=== PATIENT | female | born 1970 | race Caucasian/White ===

== ENCOUNTER → 2019-09-18 12:19 | Outpatient (CLI) | payer BC, SELFPAY ==
--- NOTE | ~2019-09-18 | MR_ITS ---
EXAMINATION: MR cervical spine wo con EXAM DATE: 09/18/2019 12:55 INDICATION: Neck pain. TECHNIQUE: Multi-sequential, multiplanar MR images of the cervical spine were obtained without contra st. Axial T2, axial T2 MERGE sequence. Sagittal T1, T2, T2 fat saturation images also obtained. Th ere is no prior study for comparison. FINDINGS: There is mild disc disease at C4-5. The vertebral body and disc heights are otherwise well maintained. The vertebral bodies are aligned in the AP dimension. The spinal cord signal intensity a nd intrinsic morphology is normal. Cervicomedullary junction is normal in appearance. There are no chen spicious marrow signal abnormalities. Paraspinal soft tissue is unremarkable. Level by level evaluation: C2-C3: Disc does not extend beyond the endplate margin. Uncovertebral joint arthropathy: None. Facet joint arthropathy: Mild bilateral. Neural foraminal stenosis: No stenosis. Central canal stenosis: No stenosis. C3-C4: Disc does not extend beyond the endplate margin. Uncovertebral joint arthropathy: Mild right. Facet joint arthropathy: Mild to moderate right, mild left. Neural foraminal stenosis: Mild right. Central canal stenosis: No stenosis. C4-C5: There is a mild diffuse disc bulge. Uncovertebral joint arthropathy: Mild bilateral. Facet joint arthropathy: Mild bilateral. Neural foraminal stenosis: Mild right. Central canal stenosis: Mild. C5-C6: Disc does not extend beyond the endplate margin. Uncovertebral joint arthropathy: Mild to moderate right, mild left. Facet joint arthropathy: Mild bilateral. Neural foraminal stenosis: Mild to moderate right. Central canal stenosis: No stenosis. C6-C7: There is a minimal diffuse disc bulge. Uncovertebral joint arthropathy: Mild bilateral. Facet joint arthropathy: None. Neural foraminal stenosis: No stenosis. Central canal stenosis: No stenosis. C7-T1: Disc does not extend beyond the endplate margin. Uncovertebral joint arthropathy: Mild bilateral. Facet joint arthropathy: Mild left. Neural foraminal stenosis: Mild left. Central canal stenosis: No stenosis. IMPRESSION: 1. Mild cervical spondylosis as detailed above. Reviewed, dictated and finalized at location A. PER
== END ==
PROVIDERS: PCP Family Medicine; Visit Provider Psychiatry & Neurology Neurology
DX: M47.812 Spondylosis without myelopathy or radiculopathy, cervical region (principal); R20.0 Anesthesia of skin; Z79.899 Other long term (current) drug therapy
CPT/HCPCS: 72141

== ENCOUNTER 2023-04-08 09:19 | Emergency (ER) | payer BC, SELFPAY ==
--- NOTE | 2023-04-08 10:05 | PC.NURSE ---
1st call for triage, no answer
--- NOTE | 2023-04-08 10:31 | PC.NURSE ---
2nd call for triage, no answer.
== END 2023-04-08 10:31 | disposition left against medical advice (07) ==
LOC: ANHED 10:38
PROVIDERS: PCP Family Medicine
DX: Z53.21 Procedure and treatment not carried out due to patient leaving prior to being seen by health care provider (principal)
CPT/HCPCS: 99199

== ENCOUNTER 2024-08-28 09:26 | Outpatient (CLI) | payer BC, SELFPAY ==
--- NOTE | ~2024-08-28 | MR_ITS ---
EXAMINATION: MR knee LT wo con DATE: 08/28/2024 09:51 INDICATION: Left knee pain TECHNIQUE: Magnetic resonance imaging (MRI) of the left knee was performed without intravenous contra st. Sequences included coronal PD-weighted FSE, coronal PD-weighted FS FSE, sagittal T2-weighted FSE , sagittal PD-weighted FS FSE and axial PD weighted fat saturated FSE. COMPARISON: None. FINDINGS: Medial compartment: Longitudinal horizontal tear of the posterior horn of the medial meniscus which extends to the inferi or articular surface at the junction of the middle and inner thirds at the medial side of the posteri or horn transition to near the free edge with suggestion of a small secondary vertically oriented tea r plane near the free edge at the lateral side of the posterior horn. Articular cartilage is normal. Lateral compartment: Lateral meniscus is normal. Articular cartilage appears normal. There is a tiny focus of subarticular edema-like signal change along the posterior margin of the lateral tibial plateau which suggests pos sibility of occult overlying deep chondral fissuring. Patellofemoral compartment: Partial-thickness chondral ulceration and fissuring at the cephalad aspect of the medial patellar fac et. Deep chondral fissuring at the inferolateral aspect of the medial trochlea with minimal underlyin g cortical irregularity. Ligaments and tendons: Anterior and posterior cruciate ligaments are normal. The medial collateral ligament and fibular scotty ateral ligament complex are normal. The extensor mechanism is normal. Mild semimembranosus tendinopat hy without tear. The remainder of the visualized medial and lateral hamstring tendons as well as the iliotibial band are normal. Fluid: Physiologic amount of fluid in the joint space. No loose osteochondral bodies identified. Moderate-si zed Harvey's cyst measuring 5.3 x 2.1 x 0.9 cm. Osseous/other: No fracture or pathologic marrow replacing process. IMPRESSION: 1. Tear at the posterior horn of the medial meniscus. 2. 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 3. Possible small region of high-grade chondromalacia along the posterior rim of the lateral tibial p lateau. 4. Mild distal semimembranosus tendinopathy without tear. 4. Moderate-sized Harvey's cyst. Reviewed, dictated and finalized at location B. UCT SAFETY COORDINATOR IMPRESSION: 1. Tear at the posterior horn of the medial meniscus. 2. Mild patellofemoral osteoarthritis with moderate to high-grade chondromalaci a. 3. Possible small region of high-grade chondromalacia along the posterior rim o f the lateral tibial plateau. 4. Mild distal semimembranosus tendinopathy without tear. 4. Moderate-sized Harvey's cyst.
== END 2024-08-28 09:27 | disposition home or self-care (01) ==
LOC: MICIMG 09:26
PROVIDERS: PCP Family Medicine; Visit Provider Nurse Practitioner Family
DX: S83.242A Other tear of medial meniscus, current injury, left knee, initial encounter (principal); M17.12 Unilateral primary osteoarthritis, left knee; M71.22 Synovial cyst of popliteal space [Baker], left knee; M25.562 Pain in left knee; G89.29 Other chronic pain
CPT/HCPCS: 73721

== ENCOUNTER 2024-09-17 00:24 | Day surgery (SDC) | payer BC, SELFPAY ==
[2024-09-10 12:38] VITALS: BMI 24.8
--- NOTE | 2024-09-10 12:46 | PC.NURSE ---
Report to the Outpatient Waiting Room, entrance under the green pavilion located off [facility], at time _0730_ on date _[id number]_. Planned Procedure Time: _0930_.? Time changes happen often and if your time is changed the preop area will call you the afternoon before. - You and your visitor will be asked to self-screen and do not enter if you have any COVID symptoms. Please call surgeon if you need to reschedule. - A mask is optional within the hospital at this time. Patients may have clear liquids (water, carbonated beverages, clear teas, apple juice) until 3 hours prior to surgery with a maximum of 20 ounces. - No food from midnight until time of surgery and no smoking, or chewing tobacco (or any form of nicotine). No chewing gum, candy or mints. Take only the following medications with a SIP of water on the morning of surgery: ___Bupropion____ DO NOT STOP ANY OF YOUR OTHER PRESCRIPTION MEDICATIONS PRIOR TO SURGERY EXCEPT THE FOLLOWING Hold all vitamins and supplements for 3 days per anesthesiologist. Medications to discontinue per physician ___Wegovy___ Date to take last lied___[id number]____ Please no make-up, nail angolan, hairspray, perfume, deodorant, or body powder the day of surgery.? No jewelry (including any body piercings) or valuables the day of surgery, leave them at home.? Please take a shower or bath the night before, or the morning of, surgery with an antibacterial soap.? Wear comfortable, loose fitting clothing.? - Jewelry must be removed prior to entering the operating room.? Rings and piercings that are not removed may be cut off. - The hospital will not accept responsibility for valuables.? - Please leave all valuables, including medications, at home the day of surgery. If you are going home after surgery, a licensed hammer driver must drive you home.? - NO public transportation without another adult if you receive anesthesia. - We recommend that an adult stay with you for 24 hours following discharge. - We also recommend that you do not drive, make important decision, drink alcoholic beverages, or take any drugs that were not prescribed by your health care provider for at least 24 hours after your discharge time. Follow any additional instructions given to you from your surgeon. Telephone instructions given to __Faviolajaycee__and asked if any additional questions and then verbalized understanding. Patient advised to call surgeon office or pre surgery nurse liaison [phone] if any additional questions.
[2024-09-17] VITALS (9 sets, daily range): BP systolic 106–139; BP diastolic 54–79; PULSE 56–77; RESP 12–18; TEMP 36.2; O2SAT 97–100; BMI 25.0
--- OUTSIDE RECORDS SUMMARY | 2024-09-17 00:27 | XMS_ITS | Data Portability ---
Author Organization [place] [facility], Main Office Address [address] [place] [address] Assessment Encounter Date Assessment Date Assessment LastModified by Organization Details LastModified Time 05/16/2023 05/16/2023 This note is dictated and transcribed by [employer]. Medicine Worker variances may occur. Despite proofreading, typographical errors may occur. [email or web address] Not available 05/16/2023 15:00:08 Plan of Treatment Reminders Order Date Submit Date Provider Last Modified By Organization Details Last Modified Time Details Appointments None recorded. Lab lipid panel, serum 2023 [facility] (Lab), [address] [place], [address], 10:55:08 CMP, serum or plasma 2023 [facility] (Lab), [address] [place], [address], 10:55:25 CMP, serum or plasma 2023 [email or web address] [facility] (Lab), [address] [place], [address], 16:45:37 TSH + free T4, serum 2023 [email or web address] [facility] (Lab), [address] [place], [address], 16:45:37 noninvasive colorectal cancer DNA + occult blood screening, QL, stool 2022 023 [email or web address] [facility] (Cologuard Orders Only), [address], [address], [place], [address], 3 11:18:08 Referral None recorded. Procedures None recorded. Surgeries None recorded. Imaging XR, foot, 3 or more view 2022 023 [email or web address] [facility] [place], [facility], [address], [place], [address], 3 14:59:58 MAMMO, screening, digital, bilateral - *Please call pt to schedule* 2022 [email or web address] [place] [address] ([facility]), [address], [place], [address], 3 15:33:59 Medication Orders Wegovy 2.4 mg/0.75 mL subcutaneou s pen injector 2023 024 emilio [facility], [facility], [place], [address], 4 14:21:49 phentermine 37.5 mg tablet 2023 024 [id number], [address], [place], [place], [id number], 4 14:21:30 alprazolam 1 mg tablet 2023 024 SEBASTIEN [facility] #10865, [address], [place], [place], [id number], 4 09:23:31 bupropion HCl XL 150 mg 24 hr tablet, extended release [address] [facility]65, [address], [place], [place], [id number], 4 14:21:01 bupropion HCl XL 300 mg 24 hr tablet, extended release 2023 024 SEBASTIEN [facility], [address] [facility], [place], [address], 09:23:19 bupropion HCl XL 150 mg 24 hr tablet, extended release 2023 024 [email or web address]00257, [address], [place], [place], [id number], 4 14:21:01 zolpidem 5 mg tablet [address] [facility]00770, [address], [place], [place], [id number], 4 14:21:52 Patient TargetsNo targets recorded. Patient Instructions Encounter Date Encounter Id Patient Instructions Last Modified By Organization Details Last Modified Time 05/13/2024 [id number] Follow-up depression, inflammatory arthritis both clinically stable. Will check some baseline blood work consisting of CBC, CMP and lipid panel. Continue on current medications. Will follow-up in six months. Additional Orders - Directives - Recommendations 1. Mammogram 2. Bone density scan Follow Up: 6 Months Approximate Date: 11/09/2024 Portions of the record may have been created with voice recognition software. Occasional wrong-word or [id number] substitutions may have occurred due to the inherent limitations of voice recognition software. Read the chart carefully and recognize, using context, where substitutions have occurred. [email or web address] Not available 05/13/2024 14:32:18 Reason for Referral None Reported. Results Created Date Observation Date Name Description Value Unit Range Abnormal Flag Note LastModifiedBy Organization Detail LastModifiedTime 03/20/2003/20/2023 COLOG UARD cologuard result reportable NEGATI VE negati ve normal NEGAT MICHAELA TEST RESUL T. A negat michaela Colog uard resul t indic ates a low likel ihood that a color ectal cance r (CRC) or advan eddie adeno ma (maggie omato us polyp s with more advan eddie pre-m align ant featu res) is prese nt. The [facility] e that a perso n with a negat michaela Colog uard test has a color ectal cance r is less than 1 in 1500 (nega tive predi ctive value >99.9 %) or has an advan eddie adeno ma is less than 5.3% (nega tive predi ctive value 94.7% ). These data are based on a prosp ectiv e cross -sect ional study of 10,00 0 indiv idual s at [place] risk for color ectal cance r who were scree [place] with both Colog uard and colon oscop y. (Carolyne xiang South. et al, N Engl J Med 2014; 370(1 4):12 86-12 97) The zully l value (refe rence range ) for this assay is negat michaela. COLOG UARD RE-SC REENI NG RECOM MENDA TION: Perio dic color ectal cance r scree stone is an impor tant part of preve ntive healt hcare for asymp tomat ic indiv idual s at [place] ge risk for color ectal cance r. Follo wing a negat michaela Colog uard resul t, the Ameri can Cance r Socie ty and U.S. Multi -Soci ety Task Force scree stone guide lines recom mend a Colog uard re-sc reeni ng inter carlitos of 3 years . Refer ences : Ameri can Cance r Socie ty Guide line for Color ectal Cance r Scree stone: https ://nuris w.can cer.o rg/ca ncer/ colon -rect al-ca ncer/ detec tion- diagn osis- stagi ng/ac s-rec ommen datio ns.ht ml.; Renny SUE, Kwesi salazar CR, Home MillerK, Color ectal Cance r Scree stone: Recom menda tions for Physi cians and Patie nts from the U.S. Multi -Soci ety Task Force on Color ectal Cance r Scredayton jacobg , Am Angela sharma y 2017; 112:1 016-1 030. TEST DESCR IPTIO N: [place] site algor ithmi c thad sis of stool DNA-b iostevie villafana with hemog lobin immun oassa y. Quant itati ve value s of indiv idual bioma rkers are not repor table and are not assoc iated with indiv idual bioma rker resul t refer ence range s. Colog uard is inten ded for color ectal cance r scree stone of adult s of eithe r sex, 45 years or older , who are at [facility] for color ectal cance r (CRC) . Colog uard has been appro kellie for use by the U.S. FDA. The perfo rmanc e of Colog uard was estab lishe d in a cross secti onal study of [facility] adult s aged 50-84 . Colog uard perfo rmanc e in [place] nts ages 45 to 49 years was estim ated by sub-g roup thad sis of near- age group s. Colon oscop ies perfo rmed for a posit michaela resul t may find as the most clini jeff signi ficxiao t lesio n: color ectal cance r [4.0% ], advan eddie adeno ma (incl uding sessi le constance alec polyp s great er than or equal to 1cm diame ter) [20%] or non- advan eddie adeno ma [31%] ; or no color ectal neopl carlos [45%] . These estim ates are deriv ed from a prosp ectiv e cross -sect ional scree stone study of 10,00 0 indiv idual s at [facility] risk for color ectal cance r who were [place] with both Colog uard and colon oscop y. (Ellie Rivera al, N Engl J Med 2014; 370(1 4):12 86-12 97.) Colog uard may produ ce a false negat michaela or false posit michaela resul t (no color ectal cance r or preca ncero us polyp prese nt at colon oscop y follo w up). A negat michaela Colog uard test resul t does not guara ntee the absen ce of CRC or advan eddie adeno ma (pre- cance r). The curre nt Colog uard scree stone inter carlitos is every 3 years . (Amer ican Cance r Socie ty and U.S. Multi -Soci ety Task Force ). Colog uard perfo rmanc e data in a 10,00 0 patie nt pivot al study using colon oscop y as the refer ence metho d can be acces sed at the follo wing locat ion: www.e xactl abs.c om/re suljeffery . Addit ional descr iptio n of the Colog uard test proce ss, warni ngs and preca ution s can be found at www.c ologu spencer.c om. Not Available [facility] (Cologuard Orders Only) [address], [place], [address], 03/28/2023 04:17:40 05/14/20 24 05/14/2024 CBC/C OMPLE TE BLD COUNT W/DIF F white blood cells 7.9 x10'3 /uL 4.2-10 .8 Not Available [facility] (Lab) [address] [place], [address], 05/14/2024 10:41:18 05/14/2005/14/2024 CBC/C OMPLE TE BLD COUNT W/DIF F red blood cells 4.67 x10'6 /uL 3.80-5 .20 Not Available [facility] (Lab) [address] [place], [address], 05/14/2024 10:41:18 05/14/20 24 05/14/2024 CBC/C OMPLE TE BLD COUNT W/DIF F hemoglobin 14.4 g/dL 12.0-1 5.6 Not Available [facility] (Lab) [address] [place], [address], 05/14/2024 10:41:18 05/14/2005/14/2024 CBC/C OMPLE TE BLD COUNT W/DIF F hematocrit 44.1 % 35.7-4 5.7 Not Available [facility] (Lab) [address] [place], [address], 05/14/2024 10:41:18 05/14/2005/14/2024 CBC/C OMPLE TE BLD COUNT W/DIF F mean red cell volume 94.4 fL 82.0-9 9.0 Not Available [facility] (Lab) [address] [place], [address], 05/14/2024 10:41:18 05/14/2005/14/2024 CBC/C OMPLE TE BLD COUNT W/DIF F mean red cell hemoglobin 30.8 pg 27.0-3 3.0 Not Available [facility] (Lab) [address] [place], [address], 05/14/2024 10:41:18 05/14/2005/14/2024 CBC/C OMPLE TE BLD COUNT W/DIF F mean RBC HGB concentratio n 32.7 g/dL 31.0-3 6.0 Not Available [facility] (Lab) [address] [place], [address], 05/14/2024 10:41:18 05/14/2005/14/2024 CBC/C OMPLE TE BLD COUNT W/DIF F red cell distribution width 12.0 % 11.8-1 5.5 Not Available [facility] (Lab) [address] [place], [address], 05/14/2024 10:41:18 05/14/20 24 05/14/2024 CBC/C OMPLE TE BLD COUNT W/DIF F platelets 263 x10'3 /uL 150-40 0 Not Available [facility] (Lab) [address] [place], [address], 05/14/2024 10:41:18 05/14/2005/14/2024 CBC/C OMPLE TE BLD COUNT W/DIF F mean platelet volume 9.5 fL 9.0-12 .4 Not Available [facility] (Lab) [address] [place], [address], 05/14/2024 10:41:18 05/14/2005/14/2024 CBC/C OMPLE TE BLD COUNT W/DIF F neutrophils 71.2 % 39.0-7 2.0 Not Available [facility] (Lab) [address] [place], [address], 05/14/2024 10:41:18 05/14/2005/14/2024 CBC/C OMPLE TE BLD COUNT W/DIF F lymphocytes 19.4 % 16.0-4 7.0 Not Available [facility] (Lab) [address] [place], [address], 05/14/2024 10:41:18 05/14/2005/14/2024 CBC/C OMPLE TE BLD COUNT W/DIF F monocytes 6.5 % 5.0-12 .0 Not Available [facility] (Lab) [address] [place], [address], 05/14/2024 10:41:18 05/14/2005/14/2024 CBC/C OMPLE TE BLD COUNT W/DIF F eosinophils 1.7 % 1.0-7. 0 Not Available [facility] (Lab) [address] [place], [address], 05/14/2024 10:41:18 05/14/2005/14/2024 CBC/C OMPLE TE BLD COUNT W/DIF F basophils 0.8 % 0.0-2. 0 Not Available [facility] (Lab) [address] [place], [address], 05/14/2024 10:41:18 05/14/2005/14/2024 CBC/C OMPLE TE BLD COUNT W/DIF F immature granulocytes 0.4 % 0.00-0 .50 Not Available [facility] (Lab) [address] [place], [address], 05/14/2024 10:41:18 05/14/2005/14/2024 CBC/C OMPLE TE BLD COUNT W/DIF F neutrophils, absolute count 5.60 x10'3 /uL 1.5-8. 0 Not Available [facility] (Lab) [address] [place], [address], 05/14/2024 10:41:18 05/14/2005/14/2024 CBC/C OMPLE TE BLD COUNT W/DIF F lymphocytes, absolute count 1.52 x10'3 /uL 1.07-3 .43 Not Available [facility] (Lab) [address] [place], [address], 05/14/2024 10:41:18 05/14/20 24 05/14/2024 CBC/C OMPLE TE BLD COUNT W/DIF F monocytes, absolute count 0.51 x10'3 /uL 0.29-0 .99 Not Available [facility] (Lab) [address] [place], [address], 05/14/2024 10:41:18 05/14/20 24 05/14/2024 CBC/C OMPLE TE BLD COUNT W/DIF F eosinophils, absolute count 0.13 x10'3 /uL 0.02-0 .53 Not Available [facility] (Lab) [address] [place], [address], 05/14/2024 10:41:18 05/14/20 24 05/14/2024 CBC/C OMPLE TE BLD COUNT W/DIF F basophils, absolute count 0.06 x10'3 /uL 0.01-0 .08 Not Available [facility] (Lab) [address] [place], [address], 05/14/2024 10:41:18 05/14/20 24 05/14/2024 CBC/C OMPLE TE BLD COUNT W/DIF F immature granulocytes ,absolute 0.03 x10'3 /uL 0.00-0 .05 Not Available [facility] (Lab) [address] [place], [address], 05/14/2024 10:41:18 05/14/2005/14/2024 CBC/C OMPLE TE BLD COUNT W/DIF F nucleated red blood cells 0.0 % -0 Not Available [facility] (Lab) [address] [place], [address], 05/14/2024 10:41:18 05/14/20 24 05/14/2024 CBC/C OMPLE TE BLD COUNT W/DIF F NRBC# 0.00 x10'3 /uL Not Available [facility] (Lab) [address] [place], [address], 05/14/2024 10:41:18 05/14/20 24 05/14/2024 LIPID PANEL cholesterol 188 mg/dL 140-19 9 NIH BETTY NSUS RECOM MENDA TION FOR MARIELY STERO L: ADULT CHILD LOW RISK: <200 <170 BORDE RLINE : <200- 239 ----- HIGH RISK: >240 >200 Not Available [facility] (Lab) [address] [place], [address], 05/14/2024 10:55:08 05/14/2005/14/2024 LIPID PANEL triglyceride s 147 mg/dL 0-150 NIH BETTY NSUS REPOR T RECOM MENDA TION FOR TRIGL YCERI RAE: ADULT CHILD LOW RISK: <150 ----- BODER LINE: 150-1 99 ----- HIGH RISK: >200 ----- Not Available [facility] (Lab) [address] [place], [address], 05/14/2024 10:55:08 05/14/2005/14/2024 LIPID PANEL HDL cholesterol 80 mg/dL 40- Not Available [facility] (Lab) [address] [place], [address], 05/14/2024 10:55:08 05/14/2005/14/2024 LIPID PANEL LDL cholesterol, calculated 79 mg/dL 0-130 NIH BETTY NSUS REPOR T RECOM MENDA TIONS FOR LDL: ADULT CHILD LOW RISK <130 <110 (OPTI MAL LDL) <100 ----- BORDE RLINE : 130-1 59 ----- HIGH RISK: >160 >130 A TRIGL YCERI DE RESUL T >400 INVAL IDATE S THE CALCU LATIO N FOR LDL FRACT IONAT ION - THE LDL RESUL T WILL NOT BE REPOR ALEC. Not Available [facility] (Lab) [address] [place], [address], 05/14/2024 10:55:08 05/14/2005/14/2024 COMPR EHENS MICHAELA METAB OLIC PANEL sodium 141 mmol/ L 137-14 5 Not Available [facility] (Lab) [address] [place], [address], 05/14/2024 10:55:25 05/14/2005/14/2024 COMPR EHENS MICHAELA METAB OLIC PANEL potassium 6.0 mmol/ L 3.5-5. 1 high Not Available [facility] (Lab) [address] [place], [address], 05/14/2024 10:55:25 05/14/2005/14/2024 COMPR EHENS MICHAELA METAB OLIC PANEL chloride 106 mmol/ L 98-107 Not Available [facility] (Lab) [address] [place], [address], 05/14/2024 10:55:25 05/14/20 24 05/14/2024 COMPR EHENS MICHAELA METAB OLIC PANEL carbon dioxide 29 mmol/ L 22-30 Not Available [facility] (Lab) [address] [place], [address], 05/14/2024 10:55:25 05/14/20 24 05/14/2024 COMPR EHENS MICHAELA METAB OLIC PANEL anion gap 12.0 mmol/ L 14-22 low Not Available [facility] (Lab) [address] [place], [address], 05/14/2024 10:55:25 05/14/20 24 05/14/2024 COMPR EHENS MICHAELA METAB OLIC PANEL glucose 98 mg/dL 70-99 Not Available [facility] (Lab) [address] [place], [address], 05/14/2024 10:55:25 05/14/20 24 05/14/2024 COMPR EHENS MICHAELA METAB OLIC PANEL BUN 13 mg/dL 8-19 Not Available [facility] (Lab) [address] [place], [address], 05/14/2024 10:55:25 05/14/20 24 05/14/2024 COMPR EHENS MICHAELA METAB OLIC PANEL creatinine 0.97 mg/dL 0.66-1 .25 Not Available [facility] (Lab) [address] [place], [address], 05/14/2024 10:55:25 05/14/20 24 05/14/2024 COMPR EHENS MICHAELA METAB OLIC PANEL GFR 60 Refer ence Range : Selby ge GFR Healt hy Adult : >60 mL/mi n/1.7 3 m2 Chron ic Kidne y Disea se: 15-60 mL/mi n/1.7 3 m2 Kidne y Failu re: <15/m L/min /1.73 m2 www.n iddk. nih.g ov The MDRD study equat ion has not been valid ated in child anibal <18 years of age; pregn ant women ; the elder ly >85 years of age; or in some racia l or ethni c subgr oups, such as Hispa nics. Outsi de the valid ated joellen eters , estim ated GFR is less accur ate, requi ring clini javon judgm ent on a case- by-ca se basis . Clini javon inter preta tion for other races and ages must be made by the clini noble. The MDRD study equat ion has not been valid ated for the evalu ation of serum creat inine relat ed to nutri lópez l statu s or medic ation usage . For perso ns <18 years of age, a pedia tric GFR calcu lator is avail able on the [facility] websi te: https ://nuris pereira.o rg/pr ofess ional s/kdo qi/gf r_cal culat or Not Available [facility] (Lab) [address] [place], [address], 05/14/2024 10:55:25 05/14/2005/14/2024 COMPR EHENS MICHAELA METAB OLIC PANEL alkaline phosphatase 84 U/L 38-126 Not Available [facility] (Lab) [address] [place], [address], 05/14/2024 10:55:25 05/14/2005/14/2024 COMPR EHENS MICHAELA METAB OLIC PANEL alanine aminotransfe rase 16 U/L 0-35 Not Available [facility] (Lab) [address] [place], [address], 05/14/2024 10:55:25 05/14/2005/14/2024 COMPR EHENS MICHAELA METAB OLIC PANEL aspartate aminotransfe rase 22 U/L 15-37 Not Available [facility] (Lab) [address] [place], [address], 05/14/2024 10:55:25 05/14/20 24 05/14/2024 COMPR EHENS MICHAELA METAB OLIC PANEL bilirubin, total 0.50 mg/dL 0.20-1 .30 Not Available [facility] (Lab) [address] [place], [address], 05/14/2024 10:55:25 05/14/20 24 05/14/2024 COMPR EHENS MICHAELA METAB OLIC PANEL calcium 9.9 mg/dL 8.4-10 .2 Not Available [facility] (Lab) [address] [place], [address], 05/14/2024 10:55:25 05/14/2005/14/2024 COMPR EHENS MICHAELA METAB OLIC PANEL total protein 7.2 g/dL 6.3-8. 2 Not Available [facility] (Lab) [address] [place], [address], 05/14/2024 10:55:25 05/14/20 24 05/14/2024 COMPR EHENS MICHAELA METAB OLIC PANEL albumin 4.6 g/dL 3.4-5. 0 Not Available [facility] (Lab) [address] [place], [address], 05/14/2024 10:55:25 05/14/20 24 05/14/2024 COMPR EHENS MICHAELA METAB OLIC PANEL globulin 2.6 g/dL 2.6-4. 2 Not Available [facility] (Lab) [address] [place], [address], 05/14/2024 10:55:25 05/14/20 24 05/14/2024 COMPR EHENS MICHAELA METAB OLIC PANEL A/G ratio 1.8 ratio 1.0-2. 0 Not Available [facility] (Lab) [address] [place], [address], 05/14/2024 10:55:25 05/14/20 24 05/14/2024 T4 FREE free T4 1.42 NG/dL 0.78-2 .19 Not Available [facility] (Lab) [address] [place], [address], 05/14/2024 10:55:59 05/14/20 24 05/14/2024 TSH thyroid-stim ulating hormone 0.758 uIU/m L 0.465- 4.680 Not Available [facility] (Lab) [address] [place], [address], 05/14/2024 10:57:00 06/29/20 24 06/29/2024 INFLU STEVE A/B ANTIG EN RAPID flu A NEGATI VE negati ve Not Available [facility] (Lab) [address] [place], [address], 06/29/2024 12:18:28 06/29/20 24 06/29/2024 INFLU STEVE A/B ANTIG EN RAPID flu B NEGATI VE negati ve THIS TEST CAN NOT DISTI NGUIS H INFLU STEVE A VIRUS SUBTY PES. ALSO, PLEAS E NOTE THAT A NEGAT MICHAELA RESUL T DOES NOT EXCLU DE INFLU STEVE VIRUS INFEC TION. IF MORE CONCL USIVE TESTI NG IS FATEMEH ED, FOLLO W-UP CONFI RMATO RY TESTI NG WITH RT-PC R IS SUGGE STED. Not Available [facility] (Lab) [address] [place], [address], 06/29/2024 12:18:28 06/29/20 24 06/29/2024 INFLU STEVE A/B ANTIG EN RAPID valid QC POSITI VE Not Available [facility] (Lab) [address] [place], [address], 06/29/2024 12:18:28 06/29/20 24 06/29/2024 INFLU STEVE A/B ANTIG EN RAPID lot # [id number] Not Available [facility] (Lab) [address] [place], [address], 06/29/2024 12:18:28 06/29/20 24 06/29/2024 INFLU STEVE A/B ANTIG EN RAPID source JAWBONE BREAKER SWAB Not Available [facility] (Lab) [address] [place], [address], 06/29/2024 12:18:28 04/08/20 23 04/08/2023 CT, head, w/o contr ast No observ ation record ed. [facility] [address] [place], [address], 04/09/2023 11:13:31 04/08/20 23 04/08/2023 CT, cervi javon spine , w/o contr ast No observ ation record ed. [email or web address] [facility] [address] [place], [address], 04/09/2023 11:14:08 04/08/20 23 04/08/2023 imagi ng/di agnos tic resul t No observ ation record ed. [email or web address] [address] [place], [address], 12/06/2023 09:34:04 05/01/20 23 05/01/2023 XR, foot No observ ation record ed. [facility] [address] [place], [address], 05/01/2023 13:04:32 05/01/20 23 05/01/2023 XR, ankle No observ ation record ed. [email or web address] [address] [place], [address], 12/06/2023 10:21:04 05/16/20 XR, foot, 3 or more view No observ ation record ed. [email or web address] [facility] [place] [address], [address], [place], [address], 05/16/2023 14:59:55 07/15/20 23 07/09/2023 XR, foot, 3 or more view No observ ation record ed. Ramy Johnson MD [address], [place], [address], 07/15/2023 15:24:58 07/02/20 24 07/02/2024 XR, chest , 2 view [facility] [address] [facility] [place] [address] Patien t Name: JORDYN PORTILLO ER Access ion #: [id number] Sex: F : 1970 6 Dictat ed By: Pino Lozoya ms Attend ing Physic justin: JILLIAN ROSARIO Orderi ng Physic justin: JILLIAN ROSARIO CE Exam Date: 2023 07:27 AM Exam Name: XR CHEST 2V Admitt ing Diagno sis(es ): XR CHEST 2V CLINIC AL HISTOR Y: cough COMPAR MARY: CHEST 2VIEW, ROUTIN E on DOS: 9 TECHNI QUE: Fronta l and latera l view of the chest was obtain ed FINDIN GS: Lines and Tubes: None Lungs: Bibasi lar opacit ies. Pleura : No effusi on. No pneumo thorax . Cardio medias tinal contou rs: Unrema rkable Bones: No acute osseou s abnorm ality. IMPRES EUN: 1. Bibasi lar opacit ies. Electr onical ly Signed by: Pino Lozoya ms at 2023 08:03: 03 AM Page 1 [email or web address] [facility] (Imaging) [address], [place], [address], 07/02/2024 09:06:01 08/28/19 25 08/28/2024 imagi ng/di agnos tic resul t No observ ation record ed. [facility] [address], [place], [address], 08/28/2024 15:19:16 Result Notes None recorded. Problems Name Problem SNOMED Code Status Onset Date Resolution Date Notes Provider Name and Address Organization Details Recorded Time Spasm 49547554 Active 2022 Not Available [facility] 3 00:22:33 Psoriatic arthritis 796891125 Active 2019 Not Available [facility] 3 00:22:33 Radiotherapy follow-up 623207178 Active Not Available [facility] 3 00:22:33 Radial styloid tenosynovitis 47525801 Active Not Available [facility] 3 00:22:33 Pneumonia 719225082 Active Not Available [facility] 3 00:22:33 Right upper quadrant pain 189645435 Active Not Available [facility] 3 00:22:33 Lesion of ulnar nerve 157564676 Active Not Available [facility] 3 00:22:33 Dizziness 770939024 Active Not Available [facility] 3 00:22:33 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 Not Available [facility] 3 00:22:33 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 3 07:46:23 Herpes simplex 69465860 Active 2022 Ophelia Levin MD [address], [place], [address] , [facility] [employer] [facility] 3 10:31:55 Insomnia 675163474 Active 2022 Ophelia Levin MD [address], [address], [address] , [facility] 3 14:57:00 Closed fracture of fifth metatarsal bone 53665808 Active 2022 Ophelia Levin MD [address], [facility] [address], [address] , [facility] 3 13:04:39 Toothache 48919223 Active 2022 Ophelia Levin MD [address], [address], [address] , [facility] 3 12:27:36 Mixed anxiety and depressive disorder 811523846 Active 2023 Ophelia Levin MD [address], [address], [address] , [facility] 4 15:29:08 Low back pain 966349219 Active 2023 Ophelia Levin MD [address], [facility] [address], [address] , [facility] 4 12:32:33 Dental abscess 088890843 Active 2023 Ophelia Levin MD [address], [address], [address] , [facility] 4 18:07:12 Senile osteoporosis 47942270 Active 2023 Dilma alva, [facility] 4 14:39:31 Cough 03460349 Active 2023 LUZMA Gagnon, [facility] 4 10:44:45 Acute bronchitis 46959822 Active 2023 Noah Rosario MD [address], [address], [place], [address] , [place] [facility] 14:01:57 Wheezing 96779765 Active 2023 Kay Weaver, [employer] null, [place] [facility] 16:45:28 Notes:Some problems listed i n Document: #[id number] could not be added to this patient's chart. Please review this document and add these problems to the patient's chart manually as needed. Problem Notes None recorded. Procedures Surgical History None recorded. Imaging Results Imaging Date Name Status LastModified by [facility]iz [facility] Details LastModified Time 04/08/2023 CT, head, w/o contrast completed [facility] [address] [place], [address], 04/09/2023 11:13:31 04/08/2023 CT, cervical spine, w/o contrast completed [email or web address] [facility] [address] [place], [address], 04/09/2023 11:14:08 04/08/2023 imaging/diagn ostic result completed [address] [place], [address], 12/06/2023 09:34:04 05/01/2023 [email or web address] [address] [place], [address], 05/01/2023 13:04:32 05/01/2023 XR, ankle completed [facility] [address] [place], [address], 12/06/2023 10:21:04 05/16/2023 XR, foot, 3 or more view completed [email or web address] [facility] [place] [address], [address], [place], [address], 05/16/2023 14:59:55 07/09/2023 XR, foot, 3 or more view completed [email or web address] Ramy Johnson MD [address], [place], [address], 07/15/2023 15:24:58 07/02/2024 XR, chest, 2 view completed [email or web address] [place] [address] (Imaging) [address], [place], [address], 07/02/2024 09:06:01 08/28/2024 imaging/diagn ostic result active [facility] [address], [place], [address], 08/28/2024 15:19:16 Procedure Notes None recorded. Medical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
--- OUTSIDE RECORDS SUMMARY | 2024-09-17 00:27 | XMS_ITS | Patient Health Summary ---
Author Organization [facility] [place] Address [address] [place] [address] Care Team Providers Care Federal Judge Name Role Phone Ophelia Levin MD Primary Care Provider [phone] Note from [facility],non-owned Affiliates and Associated Physician Practices is amultiple site organization consisting of ambulatory clinics and hospital sitesin [place], [place], [place] and [place]. This disclosure is being madepursuant to the Care Everywhere program and may not contain all information available regarding this patient. Last updated 18.[facility] [place] Allergies No known active allergies Medications * Be aware that medications may not be up to date on this document. Alwaysverify current medications with the patient. * ALPRAZolam (XANAX) 1 MG tablet(Started 08/20/2019) * phentermine (ADIPEX-P) 37.5 MG capsule phentermine 37.5 mg capsule * ibuprofen (MOTRIN) 600 MG tablet(Started 04/25/2020) Take 1 tablet by mouth 2 times daily as needed for Pain * clotrimazole (LOTRIMIN AF) 1 % cream(Started 09/13/2020) Apply to affected area 2 times daily * buPROPion XL 24hr (Wellbutrin-XL) 300 MG tablet(Started 09/22/2022) Take 1 (one) tablet by mouth once daily * hydroxychloroquine (Plaquenil) 200 MG tablet(Started 03/04/2024) TAKE 2 TABLETS ONCE DAILY Active Problems Problem Noted Date Diagnosed Date Inflammatory arthritis 11/24/2019 Immunizations * Covid Moderna primary monovalent 12+ yr 0.5mL(Given 05/18/2021, 04/13/2021) Social History Tobacco Use Types Packs/Day Years Used Date Smoking Tobacco: Every Day Smokeless Tobacco: Current Tobacco Cessation:Ready to Q uit: No; Counseling Given: No PHQ-2 Answer Date Recorded PHQ2 TOTAL SCORE 0 11/30/2022 Sex and Gender Information Value Date Recorded Sex Assigned at Female 08/13/2021 8:55 AM FACILITIES PAINTER Gender Identity Female 08/13/2021 8:55 AM FACILITIES PAINTER Sexual Orientation Not on file Last Filed Vital Signs Vital Sign Reading Time Taken Comments Blood Pressure 126/72 11/30/2022 9:19 AM CDT Pulse 88 11/30/2022 9:19 AM CDT Temperature - - Respiratory Rate 22 11/30/2022 9:19 AM CDT Oxygen Saturation 100% 08/18/2021 10:33 AM FACILITIES PAINTER Inhaled Oxygen Concentration - - Weight 59 kg (130 lb) 11/30/2022 9:19 AM CDT Height 160 cm (5' 3 ) 11/30/2022 9:19 AM CDT Body Mass Index 23.03 11/30/2022 9:19 AM CDT Procedures * KASEY STAINING PATTERNS REFLEXED(Performed 11/30/2022) Performed for Inflammatory arthritis * LOKESH BLOOD SCREEN W/REFLEX TITER(Performed 11/30/2022) Performed for Inflammatory arthritis * LOKESH PANEL COMPREHENSIVE(Performed 11/30/2022) Performed for Inflammatory arthritis * COMPLEMENT C3 C4 PANEL(Performed 11/30/2022) Performed for Inflammatory arthritis * C-REACTIVE PROTEIN(Performed 11/30/2022) Performed for Inflammatory arthritis * ERYTHROCYTE SEDIMENTATION RATE(Performed 11/30/2022) Performed for Inflammatory arthritis * COMPREHENSIVE METABOLIC PANEL(Performed 11/30/2022) Performed for Inflammatory arthritis * CBC W AUTO DIFFERENTIAL(Performed 11/30/2022) Performed for Inflammatory arthritis * ERYTHROCYTE SEDIMENTATION RATE(Performed 08/18/2021) Performed for Inflammatory arthritis * COMPREHENSIVE METABOLIC PANEL(Performed 08/18/2021) Performed for Inflammatory arthritis * CBC W AUTO DIFFERENTIAL(Performed 08/18/2021) Performed for Inflammatory arthritis * CARMEL ANTIBODY PANEL(Performed 08/18/2021) Performed for Inflammatory arthritis * C-REACTIVE PROTEIN(Performed 08/18/2021) Performed for Inflammatory arthritis * KASEY STAINING PATTERNS REFLEXED(Performed 08/18/2021) * LOKESH BLOOD SCREEN W/REFLEX TITER(Performed 08/18/2021) Performed for Inflammatory arthritis * URIC ACID BLOOD(Performed 09/28/2020) Performed for Inflammatory arthritis * ERYTHROCYTE SEDIMENTATION RATE(Performed 09/28/2020) Performed for Inflammatory arthritis * COMPREHENSIVE METABOLIC PANEL(Performed 09/28/2020) Performed for Inflammatory arthritis * CBC W AUTO DIFFERENTIAL(Performed 09/28/2020) Performed for Inflammatory arthritis * XR KNEE BILAT 2VW OR LESS(Performed 08/24/2019) Performed for Inflammatory arthritis Results * (ABNORMAL) KASEY STAINING PATTERNS REFLEXED (11/30/2022 10:14 AM CDT) Only the most recent of2 resultswithin the time period is included. Homogeneous Pattern 1:320(H) [facility] ACCOUNT BILL Comment:ICAP nomenclature: A C-1 Nucleolar Pattern NOT AVAILABLE [facility] ACCOUNT BILL Comment:Result cannot be obt ained for this observation. Speckled Pattern NOT AVAILABLE [facility] ACCOUNT BILL Comment:Result cannot be obt ained for this observation. Centromere Pattern NOT AVAILABLE [facility] ACCOUNT BILL Comment:Result cannot be obt ained for this observation. Spindle Apparatus Pattern NOT AVAILABLE [facility] ACCOUNT BILL Comment:Result cannot be obt ained for this observation. Nuclear Membrane Pattern NOT AVAILABLE [facility] ACCOUNT BILL Comment:Result cannot be obt ained for this observation. Midbody Pattern NOT AVAILABLE [facility] ACCOUNT BILL Comment:Result cannot be obt ained for this observation. Nuclear Dot Pattern NOT AVAILABLE [facility] ACCOUNT BILL Comment:Result cannot be obt ained for this observation. PCNA Pattern NOT AVAILABLE [facility] ACCOUNT BILL Comment:Result cannot be obt ained for this observation. Centriole Pattern NOT AVAILABLE [facility] ACCOUNT BILL Comment:Result cannot be obt ained for this observation. Note [facility] ACCOUNT BILL Comment: For more information about Hep-2 cell patterns use ANApatterns.org, the official website for the International Consensus on Antinuclear Antibody (LOKESH) Patterns (ICAP). A positive LOKESH result may occur in healthy individuals (low titer) or be associated with a variety of diseases. See interpretation chart which is not all inclusive: . Pattern Antigen Detected Suggested Disease Association Homogeneous DNA(ds,ss), SLE - High titers Nucleosomes, Histones Drug-induced SLE Speckled Sm, AUTOMATIC PROFILE SHAPER OPERATOR, SCL-70, SLE,MCTD,PSS (diffuse form), SS-A/SS-B Sjogrens Nucleolar SCL-70, PM-1/SCL High titers Scleroderma, PM/DM Centromere Centromere PSS (limited form) w/Crest syndrome variable Nuclear Dot [id number] Primary Biliary Cirrhosis Nuclear GP210, Primary Biliary Cirrhosis Membrane jose armando A,B,C 11/30/2022 10:1 4 AM CDT 11/30/2022 Narrative Resulting Agency Comment Lab [facility] performed at: [facility] [address] [place] [address] [id number] Machelle Li MD LAB - PATHOLOGY/CYTO LOGY ORDERABLES [facility] ACCOUNT BILL [address] [place] [address] * LOKESH PANEL COMPREHENSIVE (11/30/2022 10:14 AM CDT) Anti-dsDNA Quantitative <1 0 - 9 IU/mL [facility] ACCOUNT BILL Comment: Negative <5 Equivocal 5 - 9 Positive >9 AUTOMATIC PROFILE SHAPER OPERATOR Antibody 0.3 0.0 - 0.9 AI [facility] ACCOUNT BILL Rangel (CARMEL) Antibody <0.2 0.0 - 0.9 AI [facility] ACCOUNT BILL Antiscleroderma-70 Antibody <0.2 0.0 - 0.9 AI [facility] ACCOUNT BILL Sjogren's Antibodies (SSA) <0.2 0.0 - 0.9 AI [facility] ACCOUNT BILL Sjogren's Antibodies (SSB) <0.2 0.0 - 0.9 AI [facility] ACCOUNT BILL Antichromatin Antibodies <0.2 0.0 - 0.9 AI [facility] ACCOUNT BILL Jerrica-1 Antibody <0.2 0.0 - 0.9 AI [facility] ACCOUNT BILL Centromere B Antibody <0.2 0.0 - 0.9 AI [facility] ACCOUNT BILL See Below [facility] ACCOUNT BILL Comment: Autoantibody Disease Association Condition Frequency --------- Antinuclear Antibody, SLE, mixed connective Direct (LOKESH-D) tissue diseases --------- dsDNA SLE 40 - 60% --------- Chromatin Drug induced SLE 90% SLE 48 - 97% --------- SSA (Ro) SLE 25 - 35% Sjogren's Syndrome 40 - 70% Lupus 100% --------- SSB (La) SLE 10% Sjogren's Syndrome 30% --------- Sm (anti-Rangel) SLE 15 - 30% --------- AUTOMATIC PROFILE SHAPER OPERATOR Mixed Connective Tissue Disease 95% (U1 nRNP, SLE 30 - 50% anti-ribonucleoprotein) Polymyositis and/or Dermatomyositis 20% --------- Scl-70 (antiDNA Scleroderma (diffuse) 20 - 35% topoisomerase) Crest 13% --------- Jerrica-1 Polymyositis and/or Dermatomyositis 20 - 40% --------- Centromere B Scleroderma - Crest variant 80% Blood BLOOD SPECIMEN / Unknown 11/30/2022 10:14 AM CDT 11/30/2022 Narrative Resulting Agency Comment Lab Testing performed at: [employer] [facility] [id number] Machelle Li MD LAB - SEROLOGY ORDER PITO Performing Organization Address City/[facility]/ZIP Co de Phone Number [facility] ACCOUNT BILL [address] [place] [address] * C-REACTIVE PROTEIN (11/30/2022 10:14 AM CDT) Only the most recent of2 resultswithin the time period is included. C-Reactive Protein <1 0 - 10 mg/L [facility] ACCOUNT BILL Blood BLOOD SPECIMEN / Unknown 11/30/2022 10:14 AM CDT 11/30/2022 Narrative Resulting Agency Comment Lab Testing performed at: [facility] [id number] Machelle Li MD LAB - CHEMISTRY ORDE RABLORI Performing Organization Address City/[facility]/ZIP Co de Phone Number [facility] ACCOUNT BILL [address] [place] [address] * (ABNORMAL) LOKESH BLOOD SCREEN W/REFLEX TITER (11/30/2022 10:14 AM CDT) Only the most recent of2 resultswithin the time period is included. LOKESH Positive(A ) [facility] ACCOUNT BILL Comment: Negative <1:80 Borderline 1:80 Positive >1:80 Blood BLOOD SPECIMEN / Unknown 11/30/2022 10:14 AM CDT 11/30/2022 Narrative Resulting Agency Comment Lab Testing performed at: [address] [id number] Machelle Li MD LAB - CHEMISTRY ORDE RABLES Performing Organization Address City/[facility]/ZIP Co de Phone Number [facility] ACCOUNT BILL [address] [place] [address] * ERYTHROCYTE SEDIMENTATION RATE (11/30/2022 10:14 AM CDT) Only the most recent of3 resultswithin the time period is included. Erythrocyte Sedimentation Rate Westergren 12 0 - 40 mm/hr [facility] ACCOUNT BILL Blood BLOOD SPECIMEN / Unknown 11/30/2022 10:14 AM CDT 11/30/2022 Narrative Resulting Agency Comment Lab Testing performed at: [address] [id number] Machelle Li MD LAB - HEMATOLOGY ORD ERABLES Performing Organization Address City/[facility] Co de Phone Number [facility] ACCOUNT BILL [address] [place] [address] * CBC WITH DIFFERENTIAL (11/30/2022 10:14 AM CDT) Only the most recent of3 resultswithin the time period is included. WBC 7.9 3.4 - 10.8 x10E3/uL [facility] ACCOUNT BILL RBC 4.46 3.77 - 5.28 x10E6/uL [facility] ACCOUNT BILL Hemoglobin 13.9 11.1 - 15.9 g/dL [facility] ACCOUNT BILL Hematocrit 41.1 34.0 - 46.6 % [facility] ACCOUNT BILL MCV 92 79 - 97 fL [facility] ACCOUNT BILL MCH 31.2 26.6 - 33.0 pg [facility] ACCOUNT BILL MCHC 33.8 31.5 - 35.7 g/dL [facility] ACCOUNT BILL RDW 11.7 11.7 - 15.4 % [facility] ACCOUNT BILL Platelet Count 277 150 - 450 x10E3/uL [facility] ACCOUNT BILL Granulocytes % 71 Not Estab. % [facility] ACCOUNT BILL Lymphocytes % 21 Not Estab. % [facility] ACCOUNT BILL Monocytes % 6 Not Estab. % [facility] ACCOUNT BILL Eosinophils % 1 Not Estab. % [facility] ACCOUNT BILL Basophils % 1 Not Estab. % [facility] ACCOUNT BILL Immature Cells NOT AVAILABLE [facility] ACCOUNT BILL Comment:Result cannot be obt ained for this observation. Granulocytes Absolute 5.7 1.4 - 7.0 x10E3/uL [facility] ACCOUNT BILL Lymphocytes Absolute 1.6 0.7 - 3.1 x10E3/uL [facility] ACCOUNT BILL Monocytes Absolute 0.4 0.1 - 0.9 x10E3/uL [facility] ACCOUNT BILL Eosinophils Absolute 0.1 0.0 - 0.4 x10E3/uL [facility] ACCOUNT BILL Basophils Absolute 0.0 0.0 - 0.2 x10E3/uL [facility] ACCOUNT BILL Immature Granulocytes 0 Not Estab. % [facility] ACCOUNT BILL Immature Granulocytes Absolute 0.0 0.0 - 0.1 x10E3/uL [facility] ACCOUNT BILL nRBC NOT AVAILABLE [facility] ACCOUNT BILL Comment:Result cannot be obt ained for this observation. Comment Hematology NOT AVAILABLE [facility] ACCOUNT BILL Comment:Result cannot be obt ained for this observation. Blood BLOOD SPECIMEN / Unknown 11/30/2022 10:14 AM CDT 11/30/2022 Narrative Resulting Agency Comment [facility] performed [facility]: [facility] [address] [facility] [id number] Machelle Li MD LAB - HEMATOLOGY ORD ERABLES [facility] ACCOUNT BILL [address] [place] [address] * (ABNORMAL) COMPREHENSIVE METABOLIC PANEL (11/30/2022 10:14 AM CDT) Only the most recent of3 resultswithin the time period is included. Glucose 85 70 - 99 mg/dL [facility] ACCOUNT BILL BUN 4(L) 6 - 24 mg/dL [facility] ACCOUNT BILL Creatinine 0.86 0.57 - 1.00 mg/dL [facility] ACCOUNT BILL eGFR by CKD-EPI 81 >59 mL/min/1.7 3 [facility] ACCOUNT BILL BUN/Creatinine Ratio 5(L) 9 - 23 [facility] ACCOUNT BILL Sodium 141 134 - 144 mmol/L [facility] ACCOUNT BILL Potassium 4.4 3.5 - 5.2 mmol/L [facility] ACCOUNT BILL Chloride 101 96 - 106 mmol/L [facility] ACCOUNT BILL CO2 26 20 - 29 mmol/L [facility] ACCOUNT BILL Calcium 9.8 8.7 - 10.2 mg/dL [facility] ACCOUNT BILL Protein Total 7.4 6.0 - 8.5 g/dL [facility] ACCOUNT BILL Albumin 4.7 3.8 - 4.9 g/dL [facility] ACCOUNT BILL Globulin Total 2.7 1.5 - 4.5 g/dL [facility] ACCOUNT BILL Albumin/Globulin Ratio 1.7 1.2 - 2.2 [facility] ACCOUNT BILL Bilirubin Total 0.5 0.0 - 1.2 mg/dL [facility] ACCOUNT BILL Alkaline Phosphatase 74 44 - 121 IU/L [facility] ACCOUNT BILL AST 17 0 - 40 IU/L [facility] ACCOUNT BILL ALT 13 0 - 32 IU/L [facility] ACCOUNT BILL Blood BLOOD SPECIMEN / Unknown 11/30/2022 10:14 AM CDT 11/30/2022 Narrative Resulting Agency Comment Lab [facility] performed [facility]: [facility] [address] [facility] [id number] Machelle Li MD LAB - CHEMISTRY SHANEL CALDERON [facility] ACCOUNT BILL [address] [place] [address] * COMPLEMENT C3 C4 PANEL (11/30/2022 10:14 AM CDT) Complement C3 102 82 - 167 mg/dL [facility] ACCOUNT BILL Complement C4 26 12 - 38 mg/dL [facility] ACCOUNT BILL Blood BLOOD SPECIMEN / Unknown 11/30/2022 10:14 AM CDT 11/30/2022 Narrative Resulting Agency Comment Lab Testing performed at: [facility] [address] [facility] [id number] Machelle Li MD LAB - CHEMISTRY SHANEL CALDERON Performing Organization Address [facility] de Phone Number [facility] ACCOUNT BILL [address] [place] [address] * CARMEL ANTIBODY PANEL (08/18/2021 11:20 AM FACILITIES PAINTER) AUTOMATIC PROFILE SHAPER OPERATOR Antibody 0.4 0.0 - 0.9 AI [facility] ACCOUNT BILL Rangel (CARMEL) Antibody <0.2 0.0 - 0.9 AI [facility] ACCOUNT BILL Sjogren's Antibodies (SSA) <0.2 0.0 - 0.9 AI [facility] ACCOUNT BILL Sjogren's Antibodies (SSB) <0.2 0.0 - 0.9 AI [facility] ACCOUNT BILL Blood BLOOD SPECIMEN / Unknown 08/18/2021 11:20 AM FACILITIES PAINTER 08/18/2021 Narrative Resulting Agency Comment Lab Testing performed at: [facility] [address] [facility] [id number] Machelle Li MD LAB - CHEMISTRY SHANEL CALDERON Performing Organization Address [facility] de Phone Number [facility] ACCOUNT BILL [address] [place] [address] * URIC ACID BLOOD (09/28/2020) Blood BLOOD SPECIMEN / Unknown 09/28/2020 Machelle Li MD LAB - CHEMISTRY SHANEL CALDERON Performing Organization Address [facility] Co de Phone Number OTHER LAB * XR KNEE BILAT 2VW OR LESS (08/24/2019 3:14 PM FACILITIES PAINTER) Anatomical Region Laterality Modality Lower Extremity Radiographic Marie ging 08/24/2019 3:17 PM FACILITIES PAINTER Impressions 08/24/2019 3:19 PM FACILITIES PAINTER Early degenerative changes in the right lateral femoral tibial compartment. Reading Radiologist: Didier Armando MD on 08/24/2019 at 3:19 PM Narrative 08/24/2019 3:19 PM FACILITIES PAINTER Bilateral knees 2 views HISTORY: Osteoarthrosis. Knee pain Right knee: The femoral acetabular joint space is well-preserved. Some cystic changes along the weightbearing surface of the lateral femoral condyle consistent with early degenerative change but the joint space with remains adequate. There is no knee joint effusion. No intra-articular bony loose body evident. Left knee: The femoral tibial joint space is well-preserved. No fracture joint effusion or intra-articular bony loose body evident. Procedure Note Didier Armando MD - 08/24/2019 Bilateral knees 2 views HISTORY: Osteoarthrosis. Knee pain Right knee: The femoral acetabular joint space is well-preserved. Some cystic changes along the weightbearing surface of the lateral femoral condyle consistent with early degenerative change but the joint space with remains adequate. There is no knee joint effusion. No intra-articular bony loose body evident. Left knee: The femoral tibial joint space is well-preserved. No fracture joint effusion or intra-articular bony loose body evident. IMPRESSION Early degenerative changes in the right lateral femoral tibial compartment. Reading Radiologist: Didier Armando MD on 08/24/2019 at 3:19 PM Machelle Li MD [facility] Care Teams Federal Judge Relationship Specialty Start Date End Date Ophelia Levin MD [address] [place] [place] [address] [place] [id number] PCP - General Family Medicine 08/24/19
--- OUTSIDE RECORDS SUMMARY | 2024-09-17 00:27 | XMS_ITS | Referral Summary ---
Author Organization [facility] Address [address] [place] [address] Care Team Providers Care Continuing Education Dean Name Role Phone Ophelia Levin MD Primary Care Provider [phone] Source Comments [facility],non-owned Affiliates and Associated Physician Practices is amultiple site organization consisting of ambulatory clinics and hospital sitesin [place], [place], [place] and [place]. This disclosure is being madepursuant to the Care Everywhere program and may not contain all information available regarding this patient. Last updated 18.[facility] Allergies No known active allergies Medications * Be aware that medications may not be up to date on this document. Alwaysverify current medications with the patient. Medication Sig Dispensed Refills Start Date End Date Status ALPRAZolam (XANAX) 1 MG tablet 08/20/2019 Active phentermine (ADIPEX-P) 37.5 MG capsule phentermine 37.5 mg capsule Active ibuprofen (MOTRIN) 600 MG tablet Take 1 tablet by mouth 2 times daily as needed for Pain 30 tablet 04/25/2020 Active clotrimazole (LOTRIMIN AF) 1 % cream Apply to affected area 2 times daily 60 g 09/13/2020 Active buPROPion XL 24hr (Wellbutrin-XL) 300 MG tablet Take 1 (one) tablet by mouth once daily 09/22/2022 Active hydroxychloroquine (Plaquenil) 200 MG tabletIndications: Inflammatory arthritis TAKE 2 TABLETS ONCE DAILY 180 tablet 03/04/2024 Active Active Problems Problem Noted Date Diagnosed Date Inflammatory arthritis 11/24/2019 Immunizations Name Administration Dates Next Due Christina Thompson primary monovalent 12+ yr 0.5mL ,04/13/2021 Social History Tobacco Use Types Packs/Day Years Used Date Smoking Tobacco: Every Day Smokeless Tobacco: Current Tobacco Cessation:Ready to Q uit: No; Counseling Given: No PHQ-2 Answer Date Recorded PHQ2 TOTAL SCORE 0 11/30/2022 Sex and Gender Information Value Date Recorded Sex Assigned at Female 08/13/2021 8:55 AM TOASTER ELEMENT REPAIRER Gender Identity Female 08/13/2021 8:55 AM TOASTER ELEMENT REPAIRER Sexual Orientation Not on file Last Filed Vital Signs Vital Sign Reading Time Taken Comments Blood Pressure 126/72 11/30/2022 9:19 AM CDT Pulse 88 11/30/2022 9:19 AM CDT Temperature - - Respiratory Rate 22 11/30/2022 9:19 AM CDT Oxygen Saturation 100% 08/18/2021 10:33 AM TOASTER ELEMENT REPAIRER Inhaled Oxygen Concentration - - Weight 59 kg (130 lb) 11/30/2022 9:19 AM CDT Height 160 cm (5' 3 ) 11/30/2022 9:19 AM CDT Body Mass Index 23.03 11/30/2022 9:19 AM CDT Plan of Treatment Not on file Care Teams Continuing Education Dean Relationship Specialty Start Date End Date Ophelia Levin MD [address] [place] [address] [place] [address] PCP - General Family Medicine 08/24/19
--- OUTSIDE RECORDS SUMMARY | 2024-09-17 00:27 | XMS_ITS | Clinical Summary ---
Author Organization [facility] Address [address] [place] [address] Care Team Providers Care Science Writer Name Role Phone Ophelia Levin MD Primary Care Provider [phone] Source Comments [facility],non-owned Affiliates and Associated Physician Practices is amultiple site organization consisting of ambulatory clinics and hospital sitesin [place], [place], [place] and [place]. This disclosure is being madepursuant to the Care Everywhere program and may not contain all information available regarding this patient. Last updated 18.[facility] Allergies No known active allergies Medications * [...] Sex Assigned at Female 08/13/2021 8:55 AM EQUAL OPPORTUNITY ASSISTANT Gender Identity Female 08/13/2021 8:55 AM EQUAL OPPORTUNITY ASSISTANT Sexual Orientation Not on file Last Filed Vital Signs Vital Sign Reading Time Taken Comments Blood Pressure 126/72 11/30/2022 9:19 AM CDT Pulse 88 11/30/2022 9:19 AM CDT Temperature - - Respiratory Rate 22 11/30/2022 9:19 AM CDT Oxygen Saturation 100% 08/18/2021 10:33 AM EQUAL OPPORTUNITY ASSISTANT Inhaled Oxygen Concentration - - Weight 59 kg (130 lb) 11/30/2022 9:19 AM CDT Height 160 cm (5' 3 ) 11/30/2022 9:19 AM CDT Body Mass Index 23.03 11/30/2022 9:19 AM CDT Plan of Treatment Health Maintenance Due Date Last Done Comments COLOGUARD (AGES 45-75) - COL ON CA SCREENING 1968 COLON MONITORING 1968 COLONOSCOPY - COLON CA SCREENING 1968 CT COLONOGRAPHY - COLON CA SCREENING 1968 Colorectal Cancer Screening 1968 FIT - COLON CA SCREENING 1968 FLEX SIG - COLON CA SCREENING 1968 LIPID TESTING 1968 MAMMOGRAM 1968 PAP SMEAR 1968 HIV SCREENING 12/30/1983 HEPATITIS C SCREENING 12/25/1986 DTAP/TDAP/TD VACCINES (1 - Tdap) 12/30/1987 HEPATITIS B VACCINE (1 of 3 - 19+ 3-dose series) 12/30/1987 PNEUMOCOCCAL VACCINE 50+ (1 of 2 - PCV) 12/30/1987 PNEUMOCOCCAL VACCINE (1 of 2 - PCV) 12/30/1987 ZOSTER VACCINE (1 of 2) 2018 COVID-19 VACCINE (3 2023-2 5 season) 2024 05/18/2021, 04/13/2021 INFLUENZA VACCINE (#1) 2024 06/26/2021 DEPRESSION SCREENING 07/29/2024 11/30/2022 HIB VACCINE Aged Out No longer eligi ble based on patient's age to complete this topic HPV VACCINE Aged Out No longer eligi ble based on patient's age to complete this topic MENINGOCOCCAL (Group B) VACCINE Aged Out No longer eligible b ased on patient's age to complete this topic MENINGOCOCCAL VACCINE Aged Out No mary naima eligible based on patient's age to complete this topic Care Teams Science Writer Relationship Specialty Start Date End Date Ophelia Levin MD [address] [place] [phone] PCP - General Family Medicine 08/24/19
--- NOTE | 2024-09-17 07:12 | WPDHPUPDATE1 ---
History and Physical Update Update Date/Time: 09/17/24 07:12 History and Physical has been reviewed, including an updated exam of the patient. There are NO changes in the patient's condition. Risks, benefits, and alternatives have been discussed and questions answered. Patient agrees to proceed with procedure.
--- NOTE | 2024-09-17 08:06 | P.PNAN_ITS ---
Anes - Initial Pre Proc Eval Procedure: Operation Date: 09/17/24 09:30 Proposed Procedures p Left Knee Arthroscopy, Debride Meniscus, Synovectomy, Chondroplasty, Proceed As Indicated - Ramy Johnson MD Date/Time: 09/17/24 08:06 Surgeon: Ramy Johnson MD Pre Op Diagnosis: left knee pain,meniscus tear,chondromylasia,synovi Patient Data Age: 53 Gender: F Height: 1.6 m Weight: 63.6 kg Allergies Allergy/AdvReac Type Severity Reaction Status Date / Time No Known Allergies Allergy Mild Unverified 09/10/24 12:37 Home Medications ?Medication ?Instructions ?Recorded ?Confirmed ?Type alprazolam 1 mg tablet 1 mg PO QHS 05/29/23 09/10/24 History hydroxychloroquine 200 mg tablet 200 mg PO BID 05/29/23 09/10/24 History bupropion HCl 300 mg 24 hr tablet, 300 mg PO QAM 01/14/24 09/10/24 History extended release semaglutide (weight loss) 0.5 0.5 mg subcut WEEKLY 09/10/24 09/10/24 History mg/0.5 mL subcutaneous pen injector (Wegovy) hydrocodone 5 mg-acetaminophen 325 1 tablet PO Q6H PRN pain #30 tabs 09/17/24 Rx mg tablet ondansetron 8 mg disintegrating 8 mg PO Q8H PRN nausea and 09/17/24 Rx tablet vomiting #10 tabs polyethylene glycol 3350 17 gram 17 g PO DAILY PRN constipation #14 09/17/24 Rx oral powder packet ea sennosides 8.6 mg-docusate sodium 1 tab-cap PO BID PRN constipation 09/17/24 Rx 50 mg tablet (Senna with Docusate #20 tabs Sodium) Patient hx anesthesia problems: none Family hx anesthesia problems: none Results Review: All pre-operative results and documents have been reviewed as part of the pre-operative evaluation. [facility] Past Medical History Medical History Medial meniscus tear Harvey's cyst of knee Left knee pain Fracture of metatarsal of right foot, closed Depression Surgical History Surgical History History of tonsillectomy H/O: hysterectomy Hx of cholecystectomy History of carpal tunnel release H/O knee surgery Family History Family History Mother Hyperlipidemia Hypertension Osteoarthritis Father Hyperlipidemia Hypertension Grandparent Cerebrovascular accident Hypertension Social History Social History Smoking packs per day: 0.5 Smoking cigarettes per day: 10.0 Smoking status: Current every day smoker Tobacco type: cigarettes Alcohol intake: current Occupation/Education: occupation 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 Smoker, 1 cig/day. Pt prev on GLP 1 off for 3 weeks. Informed Consent: The patient's anesthetic plan and its attendant risks and benefits were discussed with the patient/family/POA. Questions were solicited and answers provided to the satisfaction of the patient/family/POA.
[2024-09-17] MEDS: KETOROLAC 15 MG/ML VIAL (*BKC) IV PUSH (08:27)
[2024-09-17] MEDS: ACETAMINOPHEN 500 MG TABLET 1000 MG PO (08:27)
[2024-09-17] MEDS: ceFAZolin 2 GM/D5W 50 ML 2 GM/50 ML BAG IVPB (08:46)
--- NOTE | 2024-09-17 08:47 | P.OP_ITS ---
Procedure Note - Detailed Date of Procedure 09/17/24 Pre-op Diagnosis left knee pain,meniscus tear,chondromylasia,synovi Post-op Diagnosis Same Procedure Performed Left knee arthroscopy with partial medial meniscectomy, synovectomy, chond roplasty. Surgeon Ramy Johnson MD Anesthesia General Indications 53-year-old woman with left knee pain. MRI demonstrates medial meniscus tear, Harvey cyst as well as chondromalacia and synovitis. Presents for operative treatment. 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 Large complex tear posterior horn medial meniscus with Harvey cyst formation. Lateral compartment intact. ACL/PCL intact. Description of Procedure Informed consent given by patient. Operative extremity marked in preoperative holding area. Patient received intravenous antibiotics. Patient brought to operating room and underwent general anesthetic by anesthesia team. Positioned supine on operating room table. Left leg placed into a posterior thigh leg mclain. Foot of the table dropped to 90? and right leg padded out of the field. Time-out performed confirming patient, site of surgery and plan. Left knee prepped and draped in usual sterile surgical fashion using ChloraPrep skin solution. Standard arthroscopic portals made by using a 11 blade knife for the anterior lateral portal 1st. Capsule penetrated bluntly. Camera and inflow started. The above operative findings noted. Intra-articular visualization used to position the anterior medial portal using 22 gauge spinal needle. A 11 blade knife used for the skin and blunt penetration of the capsule. 4.7 millimeter arthroscopic shaver introduced and partial medial meniscectomy of the loose and torn portion performed. Edge of meniscus completed with arthroscopic Wand. Arthroscopic Wand used to perform chondroplasty of the patellofemoral articulation and the medial femoral condyle. Shaver reintroduced and a synovectomy performed of the anterior fat pad and extensive synovium as well as medial and lateral plica. Bleeding points coagulated with Wand. Knee inspected, no loose pieces noted. 1 liter of irrigant infused and suction out. Arthroscopic cannulas removed. Skin closed with 4 nylon interrupted suture. Local anesthetic with 0.25% Marcaine. Sterile dressing applied. Patient awoken from anesthesia, extubated and taken to recovery room in stable condition. All sponge needle and instrument counts correct at the end of the case. Estimated Blood Loss 5 Drains No Packing No Pathology None sent Complications None Condition Stable Disposition PACU [facility] Billing Surgery - Charge Forward: Surgery Billing ([id number])
[2024-09-17] MEDS: BUPivacaine HCL 0.25% PF 10 ML VIAL INFILTRATE (09:07)
[2024-09-17] MEDS: BUPIVACAINE/EPINEPHRINE 0.5% 50 ML VIAL 10 ML INFILTRATE (09:08)
[2024-09-17] MEDS: LACTATED RINGERS 1,000 ML 30 ML IV CONT (09:50)
[2024-09-17] MEDS: oxyCODONE HCL (*CRX) 5 MG TAB IR PO (11:23)
== END 2024-09-17 12:11 | disposition home or self-care (01) ==
PROVIDERS: PCP Internal Medicine; Visit Provider Orthopaedic Surgery
PROC: (CPT 29870; principal; 2024-09-17 09:30)
DX: M23.322 Other meniscus derangements, posterior horn of medial meniscus, left knee (principal); M71.22 Synovial cyst of popliteal space [Baker], left knee; M22.42 Chondromalacia patellae, left knee; M65.862 Other synovitis and tenosynovitis, left lower leg; F17.210 Nicotine dependence, cigarettes, uncomplicated
CPT/HCPCS: 29881; 29876; A9270; J0690; J1885; J2003; J2250; J2405; J2704; J3010; J7120

== ENCOUNTER 2024-12-17 12:13 | Outpatient (NON) | payer BC, SELFPAY ==
--- OUTSIDE RECORDS SUMMARY | 2024-12-17 12:20 | XMS_ITS | Clinical Summary ---
Author Organization [facility] Address [address] 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 This disclosure is being madepursuant to the Care Everywhere program and may not contain all information available regarding this patient. Last updated 18.[facility] Allergies No known active allergies Medications * Be aware that medications may not be up to date on this document. Alwaysverify current medications with the patient. ALPRAZolam (XANAX) 1 MG tablet 0 Active phentermine (ADIPEX-P) 37.5 MG capsule phentermine 37.5 mg capsule Active ibuprofen (MOTRIN) 600 MG tablet Take 1 tablet by mouth 2 times daily as needed for Pain 30 tablet 0 Active clotrimazole (LOTRIMIN AF) 1 % cream Apply to affected area 2 times daily 60 g 1 Active buPROPion XL 24hr (Wellbutrin-XL) 300 MG tablet Take 1 (one) tablet by mouth once daily 3 Active hydroxychloroqu ine (Plaquenil) 200 MG tabletIndicatio ns:Inflammatory arthritis TAKE 2 TABLETS ONCE DAILY 180 tablet 4 Active Active Problems Problem Noted Date Diagnosed Date Inflammatory arthritis 11/24/2019 Immunizations Immunization Administration Dates Next Due Christina Thompson primary monovalent 12+ yr 0.5mL ,04/13/2021 Social History Tobacco Use Types Packs/Day Years Used Date Smoking Tobacco: Every Day Smokeless Tobacco: Current Tobacco Cessation:Ready to Q uit: No; Counseling Given: No PHQ-2 Answer Date Recorded PHQ2 TOTAL SCORE 0 11/30/2022 Comments Unknown Sex and Gender Information Value Date Recorded Sex Assigned at Female 08/13/2021 8:55 AM 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 Legal Sex Female 6:38 AM 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 Gender Identity Female 08/13/2021 8:55 AM 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 Sexual Orientation Not on file Last Filed Vital Signs Vital Sign Reading Time Taken Comments Blood Pressure 126/72 11/30/2022 9:19 AM CDT Pulse 88 11/30/2022 9:19 AM CDT Temperature - - Respiratory Rate 22 11/30/2022 9:19 AM CDT Oxygen Saturation 100% 08/18/2021 10:33 AM 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 Inhaled Oxygen Concentration - - Weight 59 kg (130 lb) 11/30/2022 9:19 AM CDT Height 160 cm (5' 3 ) 11/30/2022 9:19 AM CDT Body Mass Index 23.03 11/30/2022 9:19 AM CDT Plan of Treatment Upcoming Encounters Date Type Department Care Team (Late st Contact Info) Description 02/26/2025 10:40 AM CDT Office Visit [facility] - Rheumatology [address] [place] [address] [phone] Machelle Li MD [address] [place] [phone] Health Maintenance Due Date Last Done Comments [...] 50+ (1 of 2 - PCV) 12/30/1987 ZOSTER VACCINE (1 of 2) 2018 COVID-19 VACCINE (3 - 2023-2 5 season) 2024 05/18/2021, 04/13/2021 DEPRESSION SCREENING 07/29/2024 11/30/2022 INFLUENZA VACCINE (Season Ended) 2025 06/26/2021 HIB VACCINE Aged Out No longer eligi ble based on patient's age to complete this topic HPV VACCINE Aged Out No longer eligi ble based on patient's age to complete this topic MENINGOCOCCAL (Group B) VACCINE SHARED DECISION-MAKING Aged Out No longer eligible based on patient's age to complete this topic MENINGOCOCCAL GROUPS A/C/Y/W VACCINE Aged Out No longer eligible b ased on patient's age to complete this topic Insurance [employer] Care Teams Retort Furnace Helper Relationship Specialty Start Date End Date Ophelia Levin MD [address] [place] [id number] PCP - General Family Medicine 08/24/19
[2024-12-17 12:54] LABS: Appearance Synovial Fluid Clear (Clear); Color Synovial Fluid Yellow (Colorless); Crystals Synovial Fluid None Seen (None Seen); Monocytes Synovial Fluid 4 %; Neutrophils Synovial Fluid 4 % (0-25); Nucleated Cell Synovial Fluid 662 /uL (0-200); RBC Synovial Fluid < 2000 /uL (0-0); Source Synovial Fluid Lt Knee Syn Fluid
[2024-12-17 12:55] LABS: Other Cells Synovial Fluid 1 %
[2024-12-18 08:37] LABS: Lymphocytes Synovial Fluid 91 %
== END 2024-12-17 12:14 | disposition home or self-care (01) ==
LOC: ANHLAB 12:18
PROVIDERS: PCP Internal Medicine; Visit Provider Orthopaedic Surgery
DX: M25.462 Effusion, left knee (principal)
CPT/HCPCS: 36415; 87070; 87075; 87205; 89051; 89060